=== PATIENT | female | born 1990 | race Caucasian/White ===

== ENCOUNTER 2018-12-11 23:59 | Emergency (ER) | payer BC ==
[2018-12-12 00:12] VITALS: BP 145/78; PULSE 98; RESP 18; TEMP 99; O2SAT 98
[2018-12-12] MEDS ORDERED: Albuterol-Ipratrop 3 mg / 0.5 (3 ml) UD INH STA (00:31)
--- NOTE | 2018-12-12 00:34 | ED PDOC ---
HPI: General Adult Time Seen by Provider: 12/12/18 00:31 Chief Complaint (Nursing): Cough, Cold, Congestion Chief Complaint (Provider): COUGH/SOB History Per: Patient (28 Y/O FEMALE HERE WITH SOB/CHEST TIGHTNESS NOTED TODAY. HAS HAD NASAL CONGESTION/SORE THROAT X 5 DAYS AND WAS GIVEN AMOXICILLIN BY PMD. NOTES H/O SEASONAL ALLERGIES ON AND OFF BUT DOES NOT BELIEVE IT IS RELATED TO SYMPTOMS TODAY.) Past Medical History Reviewed: Historical Data, Nursing Documentation, Vital Signs Vital Signs: Last Vital Signs Temp 99 F 12/12/18 00:09 Pulse 98 H 12/12/18 00:09 Resp 18 12/12/18 00:09 BP 145/78 12/12/18 00:09 Pulse Ox 98 12/12/18 00:09 Primary Care Provider: Abad Shannon - Medical History PMH: Asthma (seasonal), Hyperthyroidism - Family History Family History: States: No Known Family Hx - Home Medications Home Medications: Ambulatory Orders Medication Instructions Recorded traMADol [Ultram] 50 mg PO TID #16 tab 08/31/14 Albuterol 0.083% [Albuterol 0.083% 2.5 mg IH Q8 PRN #100 neb 12/12/18 Inhal Apple (2.5 mg/3 ml) UD] Albuterol HFA [Ventolin HFA 90 2 puff IH [id number] PRN #1 inhaler 12/12/18 mcg/actuation (8 g)] Cetirizine HCl [Zyrtec] 10 mg PO DAILY #15 tab.rapdis 12/12/18 Fluticasone Propionate [Flonase 2 spray IN DAILY #1 spray.susp 12/12/18 Allergy Relief] Mask, Face [Nebulizer Aerosol Mask 1 dev XX PRN PRN #1 dev 12/12/18 Adult] Nebulizer [Aeroeclipse II] 1 each MC Q8 PRN #1 each 12/12/18 Pseudoephedrine [Sudafed Tab] 60 mg PO Q6 PRN #24 tab 12/12/18 predniSONE [predniSONE Tab] 3 tab PO DAILY #12 tab 12/12/18 - Allergies Allergies/Adverse Reactions: Allergies Allergy/AdvReac Type Severity Reaction Status Date / Time No Known Allergies Allergy Verified 08/31/14 02:16 Review of Systems ROS Statement: Except As Marked, All Systems Reviewed And Found Negative Respiratory: Positive for: Cough, Shortness of Breath Physical Exam - Reviewed Nursing Documentation Reviewed: Yes Vital Signs Reviewed: Yes - Physical Exam Appears: Positive for: Well, Non-toxic, No Acute Distress Head Exam: Positive for: ATRAUMATIC, NORMAL INSPECTION, NORMOCEPHALIC Skin: Positive for: Normal Color, Warm, DRY Eye Exam: Positive for: EOMI, Normal appearance, PERRL ENT: Positive for: Normal ENT Inspection Neck: Positive for: Normal, Painless ROM Cardiovascular/Chest: Positive for: Regular Rate, Rhythm Respiratory: Positive for: Normal Breath Sounds, Decreased Breath Sounds Gastrointestinal/Abdominal: Positive for: Normal Exam, Soft Back: Positive for: Normal Inspection Extremity: Positive for: Normal ROM Neurological/Psych: Positive for: Awake, Alert, Normal Tone - ECG O2 Sat by Pulse Oximetry: 98 - Progress ED Course And Treament: PREDNISONE 60MG X 1 DOSE DUONEB X 1 DOSE PSEUDOEPHEDRINE 60 MG X 1 DOSE RE-EVALUATED AFTER WITH LUNGS CTAB Disposition - Clinical Impression Clinical Impression: Asthma exacerbation, Seasonal allergies - Patient ED Disposition Is Patient to be Admitted: No - Disposition Disposition: Routine/Home Disposition Time: 01:35 Condition: FAIR Prescriptions: Albuterol HFA [Ventolin HFA 90 mcg/actuation (8 g)] 2 puff IH [id number] PRN #1 inhaler PRN Reason: Cough Albuterol 0.083% [Albuterol 0.083% Inhal Apple (2.5 mg/3 ml) UD] 2.5 mg IH Q8 PRN #100 neb PRN Reason: Shortness Of Breath Cetirizine HCl [Zyrtec] 10 mg PO DAILY #15 tab.rapdis Fluticasone Propionate [Flonase Allergy Relief] 2 spray IN DAILY #1 spray.susp Mask, Face [Nebulizer Aerosol Mask Adult] 1 dev XX PRN PRN #1 dev PRN Reason: Shortness Of Breath Nebulizer [Aeroeclipse II] 1 each MC Q8 PRN #1 each PRN Reason: Shortness Of Breath predniSONE [predniSONE Tab] 3 tab PO DAILY #12 tab Pseudoephedrine [Sudafed Tab] 60 mg PO Q6 PRN #24 tab PRN Reason: Nasal Congestion Instructions: Seasonal Allergies (DC), Asthma in Adults Forms: [facility] ED School/Work Excuse
[2018-12-12] MEDS ORDERED: Albuterol-Ipratrop 3 mg / 0.5 (3 ml) UD ONE (00:51)
== END 2018-12-12 02:01 | disposition home or self-care (01) ==
LOC: H.ER 23:59
DX: J45.901 Unspecified asthma with (acute) exacerbation (principal); E05.90 Thyrotoxicosis, unspecified without thyrotoxic crisis or storm